=== PATIENT | female | born 1995 | race Caucasian/White ===

== ENCOUNTER 2021-01-16 00:45 | Emergency (ER) | payer BC ==
[~2021-01-16] VITALS: Ht 157.5 cm; Wt 159.4 kg
[2021-01-16 00:56] VITALS: BP 132/101
[2021-01-16] MEDS ORDERED: ACYC400T14 PO (01:52)
[2021-01-16] MEDS ORDERED: PRED20TA5 PO (01:52)
[2021-01-16 02:37] VITALS: BP 132/101
--- NOTE | 2021-01-16 02:38 | NUR ---
Patient discharged with v/s stable. Written and verbal after care instructions given and explained. Patient verbalized understanding. Ambulatory with steady gait. All questions addressed prior to discharge. Advised to follow up with PMD.
== END 2021-01-16 02:17 | disposition home or self-care (01) ==
LOC: MED 00:45
DX: G51.0 Bell's palsy (principal); Z79.899 Other long term (current) drug therapy
CPT/HCPCS: 99281